=== PATIENT | male | born 1995 | race Caucasian/White ===

== ENCOUNTER 2017-05-02 14:29 | Emergency (ER) | payer MEDICAID ==
[2017-05-02 16:10] VITALS: BP 147/48
[2017-05-02] MEDS ORDERED: Cyclobenzaprine 10 MG Tab PO ONE (16:18)
[2017-05-02] MEDS ORDERED: Ketorolac 60 MG/2 ML SDV IM ONE (16:18)
--- NOTE | 2017-05-02 16:20 | EDM.PDOC ---
ED HPI GENERAL MEDICAL PROBLEM - General Chief Complaint: Back Pain or Injury Stated Complaint: LOWER BACK PAIN Time Seen by Provider: 05/02/17 16:20 Source of Information: Reports: Patient, Family History Limitations: Reports: No Limitations - History of Present Illness INITIAL COMMENTS - FREE TEXT/NARRATIVE: pt has been having pain in his low back on and off for the past 2-3 weeks. He did not fall but twisted in a unusal wy. He has had some back problems in the past. Onset: Today, Sudden Duration: Getting Worse, Other (low back pain. ) Location: Reports: Back Associated Symptoms: Reports: No Other Symptoms - Related Data Allergies Allergy/AdvReac Type Severity Reaction Status Date / Time No Known Allergies Allergy Verified 05/02/17 16:00 Home Meds: Home Meds lamoTRIgine [Lamictal] 400 mg PO BEDTIME 02/16/15 [History] Lurasidone HCl [Latuda] 0.5 tab PO DAILY 05/02/17 [History] Social & Family History - Tobacco Use Smoking Status *Q: Never Smoker Second Hand Smoke Exposure: Yes - Alcohol Use Days Per Week of Alcohol Use: 0 - Recreational Drug Use Recreational Drug Use: No ED ROS GENERAL - Review of Systems Review Of Systems: See Below Constitutional: Reports: No Symptoms HEENT: Reports: No Symptoms Respiratory: Reports: No Symptoms Cardiovascular: Reports: No Symptoms Endocrine: Reports: No Symptoms GI/Abdominal: Reports: No Symptoms : Reports: No Symptoms, Flank Pain (severe pain in the lower lumbar area. ) Musculoskeletal: Reports: Other Skin: Reports: No Symptoms Neurological: Reports: No Symptoms ED EXAM,LOWER BACK PAIN/INJURY - Physical Exam Exam: See Below Text/Narrative:: Pt had a roccurence of his pain while at work today. He lifted 200 lbs about 3 weeks ago and ended up with low back pain. Exam Limited By: No Limitations General Appearance: Alert, Anxious, Moderate Distress Ears: Normal TMs Nose: Normal Inspection Throat/Mouth: Normal Inspection Head: Atraumatic Neck: Normal Inspection Respiratory/Chest: No Respiratory Distress Cardiovascular: Regular Rate, Rhythm GI/Abdominal: Soft, Non-Tender (Male) Exam: Deferred Rectal (Males) Exam: Deferred Extremities: Other (neil in the lower back pain. ) Neurological: Alert, Oriented x 3 Psychiatric: Normal Affect Course - Vital Signs Last Recorded V/S: Last Vital Signs Temp 36.9 C 05/02/17 16:09 Pulse 76 05/02/17 16:09 Resp 14 05/02/17 16:09 BP 147/48 H 05/02/17 16:09 Pulse Ox 98 05/02/17 16:09 - Orders/Labs/Meds Orders: Active Orders 24 hr Category Date Time Status Lumbar Spine Min 4V [CR] Stat Exams 05/02/17 16:19 Taken Meds: Medications Discontinued Medications Generic Name Dose Route Start Last Admin Trade Name Navneet PRN Reason Stop Dose Admin Cyclobenzaprine HCl 10 mg 05/02/17 16:18 05/02/17 17:08 Flexeril PO 05/02/17 16:19 10 mg ONETIME ONE Administration Ketorolac Tromethamine 60 mg 05/02/17 16:18 05/02/17 17:08 Toradol IM 05/02/17 16:19 60 mg ONETIME ONE Administration - Re-Assessments/Exams Free Text/Narrative Re-Assessment/Exam: 05/02/17 17:28 pt arrived with pain in the lower back. He fills like he is getting muscle tightening. 05/02/17 17:29 pt was given flexeril and torodol and he feels alot better. 05/02/17 17:30 xrays of the lumbar spine was done which reveals good interspaces and good alignment. Departure - Departure Time of Disposition: 17:30 Disposition: Home, Self-Care 01 Condition: Fair Clinical Impression: Lumbar paraspinal muscle spasm - Discharge Information Forms: ED Department Discharge Care Plan Goals: rest, ice to the area, no work tomorrow, flexeril 10 mg bid, motrin 600mg tid , norco 5/325 q6h prn for pain-- severe. - My Orders Last 24 Hours: My Active Orders 05/02/17 16:19 Lumbar Spine Min 4V [CR] Stat - Assessment/Plan Last 24 Hours: My Active Orders 05/02/17 16:19 Lumbar Spine Min 4V [CR] Stat
--- NOTE | 2017-05-05 11:49 | CR ---
L-spine Findings: The lumbar vertebrae demonstrate normal alignment. There are no compression deformities. T here are no significant degenerative findings. Impression: 1. Negative exam.
== END 2017-05-02 18:40 | disposition home or self-care (01) ==
LOC: JP.ED 14:29
DX: M62.830 Muscle spasm of back (principal); Z79.899 Other long term (current) drug therapy
CPT/HCPCS: 72110; 96372; 99284; A9270; J1885